=== PATIENT | female | born 1965 | race Two or more races ===

== ENCOUNTER 2017-11-21 10:59 | Emergency (ER) | payer OTHER ==
[~2017-11-21] VITALS: Ht 154.9 cm; Wt 67.0 kg
[2017-11-21 11:01] VITALS: BP 178/94
[2017-11-21] MEDS ORDERED: OLME20TA17 PO (11:20)
== END 2017-11-21 12:10 | disposition home or self-care (01) ==
LOC: ED 12:08
DX: T78.40XA Allergy, unspecified, initial encounter (principal); X58.XXXA Exposure to other specified factors, initial encounter; Y93.89 Activity, other specified; Y92.89 Other specified places as the place of occurrence of the external cause; Y99.8 Other external cause status
CPT/HCPCS: 93005; 99283